=== PATIENT | female | born 1995 | race Caucasian/White ===

== ENCOUNTER 2018-06-13 15:29 | Emergency (ER) | payer BC ==
[2018-06-13 16:23] VITALS: BP 111/64
--- NOTE | 2018-06-13 16:45 | UC ---
Skin Complaint HPI - HPI Summary HPI Summary: 22 year old female presents with complaints of scaly, pruritic, rash to left great toe for approximately 2 weeks. States she noticed after receiving a pedicure. Denies pain, swelling, or discharge. - History of Current Complaint Chief Complaint: UCSkin Time Seen by Provider: 06/13/18 16:29 Stated Complaint: LEFT GREAT TOE SKIN CONCERN Hx Obtained From: Patient ?: No Onset/Duration: Gradual Onset Onset Severity: Mild Current Severity: Mild Pain Intensity: 0 Location: Discrete, Foot (Left) - great toe Aggravating Factor(s): Nothing Alleviating Factor(s): Nothing Associated Signs & Symptoms: Positive: Negative - Allergy/Home Medications Allergies/Adverse Reactions: Allergies Allergy/AdvReac Type Severity Reaction Status Date / Time No Known Allergies Allergy Verified 06/13/18 16:23 Home Medications: Home Medications Escitalopram Oxalate [Lexapro] 10 mg PO DAILY 06/13/18 [History Confirmed ] medroxyPROGESTERone ACETATE* [DEPO-Provera*] 150 mg IM MONTHLY 06/13/18 [ History Confirmed 06/13/18] Review of Systems Constitutional: Negative Skin: Rash - see HPI Motor: Negative Neurovascular: Negative Musculoskeletal: Negative Is Patient Immunocompromised?: No All Other Systems Reviewed And Are Negative: Yes PMH/Surg Hx/FS Hx/Imm Hx - Additional Past Medical History Additional PMH: noncontributory Previously Healthy: Yes - Surgical History Surgical History: None - Family History Known Family History: Positive: Other - noncontributory - Social History Occupation: Employed Full-time Lives: With Family Alcohol Use: Occasionally Substance Use Type: None Smoking Status (MU): Never Smoked Tobacco Physical Exam Triage Information Reviewed: Yes Appearance: Well-Appearing, No Pain Distress, Well-Nourished Vital Signs: Initial Vital Signs Temp 98.5 F 06/13/18 16:18 Pulse 72 06/13/18 16:18 Resp 16 06/13/18 16:18 BP 111/64 06/13/18 16:18 Pulse Ox 98 06/13/18 16:18 Vital Signs Reviewed: Yes Respiratory: Positive: No respiratory distress Cardiovascular: Positive: Pulses Normal, Brisk Capillary Refill Musculoskeletal Exam: Normal Neurological: Positive: Alert, Other: - sensation intact Skin: Positive: Other - scaly, erythematous rash noted to proximal and lateral nail fold of left great toe. No tenderness, fluctuance, induration, or drainage noted. Course/Dx - Course Course Of Treatment: 22 year old female with pruritic, scaly, erythematous rash to left great toe after receiving a pedicure. Exam is consistent with a tinea pedis. Will treat with topical miconazole or other OTC antifungal. Follow with PCP if no improvement. Warning signs of infection reviewed with patient. Verbalizes understanding. - Diagnoses Provider Diagnoses: tinea pedis Discharge - Sign-Out/Discharge Documenting (check all that apply): Patient Departure All imaging exams completed and their final reports reviewed: No Studies - Discharge Plan Condition: Stable Disposition: HOME Prescriptions: Clotrimazole 1% CREAM* [Clotrimazole 1%*] 1 applic TOPICAL BID #1 tube Patient Education Materials: Athlete's Foot (ED) Referrals: No Primary Care Phys,NOPCP [Primary Care Provider] - Additional Instructions: Use the clotriamzole cream twice daily to affected area that was prescribed to you or use on over the counter antifungal cream as directed. It may take up to 2 weeks for full treatment. Wash your feet daily and be sure to dry completely. Follow up with your primary care provider in 2 weeks if no improvement. Seek immediate medical attention if you develop pain, redness that spreads, swelling of the toe, or if there is any drainage. - Billing Disposition and Condition Condition: STABLE Disposition: Home
== END 2018-06-13 16:55 | disposition home or self-care (01) ==
LOC: UCCORT 15:29
DX: B35.3 Tinea pedis (principal)
CPT/HCPCS: 99202; G0463